=== PATIENT | male | born 1995 | race African-American/Black ===

== ENCOUNTER 2019-06-05 02:49 | Emergency (ER) | payer BC ==
[~2019-06-05] VITALS: Ht 170.2 cm; Wt 72.1 kg
[2019-06-05 03:04] VITALS: BP 134/67
--- NOTE | 2019-06-05 03:09 | NUR ---
URINE SPECIMEN COLLECTED AND SENT TO LAB.
[2019-06-05 03:24] LABS: APPEARANCE,URINE CLOUDY (CLEAR); BILIRUBIN,URINE NEGATIVE (NEGATIVE); BLOOD, URINE LARGE Ery/uL (NEGATIVE); COLOR,URINE YELLOW (YELLOW); KETONES,URINE NEGATIVE (NEGATIVE); LEUKOCYTE ESTERASE ,URINE MODERATE (NEGATIVE); NITRITE, URINE NEGATIVE (NEGATIVE); PROTEIN,URINE NEGATIVE (NEGATIVE); UGLUCOSE NEGATIVE (NEGATIVE); UROBILINOGEN,URINE 0.2 EU/dL (0.2)
[2019-06-05 03:55] LABS: BACTERIA,URINE Few /HPF (None Seen); SQUAMOUS EPITHELIAL CELL,UR Rare /HPF (None Seen); WBC,URINE TOO NUMEROUS TO COUN /HPF (0-3)
[2019-06-05] MEDS ORDERED: CIPROFLOXACIN HCL 500 MG TABLET ONE (04:09)
[2019-06-05] MEDS: CIPROFLOXACIN HCL 500 MG TABLET PO ONE (04:11)
--- NOTE | 2019-06-05 04:11 | NUR ---
Patient discharged to home in stable condition. Written and verbal after care instructions given. Patient verbalizes understanding of instruction.
== END 2019-06-05 04:12 | disposition home or self-care (01) ==
LOC: EDSEX 02:55 → ER 02:55
DX: N39.0 Urinary tract infection, site not specified (principal); J45.909 Unspecified asthma, uncomplicated; F17.200 Nicotine dependence, unspecified, uncomplicated
CPT/HCPCS: 81000-TC; 87086-TC; 87186-TC